=== PATIENT | female | born 1985 | race Caucasian/White ===

== ENCOUNTER → 2016-10-21 | Outpatient (CLI) | payer OTHER ==
[2016-10-21 22:21] LABS: Hemoglobin A1C 4.9 % (4.2-6.1)
== END | disposition home or self-care (01) ==
LOC: LABWHC1 13:57
PROVIDERS: ATTEND Pediatrics Neonatal-Perinatal Medicine
DX: O24.410 Gestational diabetes mellitus in pregnancy, diet controlled (principal); Z3A.00 Weeks of gestation of pregnancy not specified
CPT/HCPCS: 36415; 82947; 83036

== ENCOUNTER 2016-11-27 05:53 | Inpatient (IN) | payer OTHER ==
--- NOTE | 2016-11-26 17:24 | P.HPOB ---
History of Present Illness H&P Date: 11/26/16 Chief Complaint: IUP term: prior c/s Patient is 31-year-old at 39 weeks gestation who has a previous history of section. She is arriving for repeat section. Her course generally speaking has been unremarkable and she is feeling well at this time. Pertinent labs do include O- blood type Rh antibody was negative. Rubella was immune, hepatitis B surface antigen nelda RPR were negative. Physical exam vital signs are stable and afebrile. Heart regular, lungs clear, extremities without pain. Abdomen soft gravid uterus is noted. heart tones obtained at time of admission. Assessment intrauterine at term: Previous section. Plan repeat low transverse section. Review of Systems All systems: negative Constitutional: Denies chills, Denies fever Eyes: denies blurred vision, denies pain Ears, nose, mouth and throat: Denies headache, Denies sore throat Cardiovascular: Denies chest pain, Denies shortness of breath Respiratory: Denies cough Gastrointestinal: Denies abdominal pain, Denies diarrhea, Denies nausea, Denies vomiting Genitourinary: Denies dysuria, Denies hematuria Musculoskeletal: Denies myalgias Integumentary: Denies pruritus, Denies rash Neurological: Denies numbness, Denies weakness Psychiatric: Denies anxiety, Denies depression Endocrine: Denies fatigue, Denies weight change Past Medical History Past Medical History: No Reported History Additional Past Medical History / Comment(s): gestational diabetes History of Any Multi-Drug Resistant Organisms: None Reported Past Surgical History: Section, Cholecystectomy Past Anesthesia/Blood Transfusion Reactions: No Reported Reaction Past Psychological History: Bipolar Smoking Status: Current every day smoker Past Alcohol Use History: None Reported Additional Past Alcohol Use History / Comment(s): smoker 11 years 5 cig/day Past Drug Use History: None Reported - Past Family History Mother Family Medical History: No Reported History Medications and Allergies Home Medications Medication Instructions Recorded Confirmed Type Pnv with Ca,No.72/Iron/FA 1 tab PO DAILY 05/05/16 11/19/16 History [ Plus Tablet] Allergies Allergy/AdvReac Type Severity Reaction Status Date / Time clindamycin Allergy Swelling Verified 11/19/16 15:35 Exam Osteopathic Statement: *. No significant issues noted on an osteopathic structural exam other than those noted in the History and Physical/Consult. - OBG Physical Exam Breast: both: normal (no masses) Abdomen: bowel sounds normal, no diffuse tenderness, no bruit present, no guarding noted, no hepatomegaly, no splenomegaly, no mass Vulva: both: normal Vagina: normal moisture, no discharge Cervix: no lesion, no discharge Uterus: normal size, normal contour Adnexa: both: normal Anus/Rectum: normal perianal skin, no rectal mass, no hemorrhoids, heme negative
[~2016-11-27 05:53] MED LIST: CITRIC ACID-SODIUM CITRATE 15 ML CUP PO ONE; ceFAZolin 2 GM in SODIUM CHLORIDE 0.9% 100 ML IVPB ONE
[2016-11-27 06:11] VITALS: BMI 33.4
[2016-11-27] MEDS: LACTATED RINGERS 1,000 ML IV SCH (06:12)
[2016-11-27 06:16] LABS: Glucose,Whole Blood 94 mg/dL (75-99)
[2016-11-27 06:23] LABS: Basophils # (A) 0.1 k/uL (0-0.2); Basophils % (A) 1 %; CH 32.3; CHCM 35.1; Eosinophils # (A) 0.4 k/uL (0-0.7); Eosinophils % (A) 3 %; HCT 35.6 % (34.0-46.0); HDW 2.52; HGB 11.9 gm/dL (11.4-16.0); Luc # (Auto) 0.16; Luc % (Auto) 1; Lymphocytes # (A) 2.9 k/uL (1.0-4.8); Lymphocytes % (A) 23 %; MCH 30.9 pg (25.0-35.0); MCHC 33.5 g/dL (31.0-37.0); MCV 92.4 fL (80.0-100.0); Mean Platelet Volume 7.8; Monocytes # (A) 0.6 k/uL (0-1.0); Monocytes % (A) 5 %; Neutrophils # (A) 8.6 k/uL (1.3-7.7); Neutrophils % (A) 68 %; RBC 3.86 m/uL (3.80-5.40); WBC 12.8 k/uL (3.8-10.6); WBC (Perox) 12.13
[2016-11-27] MEDS ORDERED: ePHEDrine 50 MG/ML 1 ML AMP ONE (07:56)
[2016-11-27] MEDS ORDERED: PHENYLEPHRINE-0.9% NACL SYG 1 MG/10 ML SYRINGE ONE (07:56)
[2016-11-27] MEDS ORDERED: OXYTOCIN 10 UNIT/ML 1 ML VIAL IM ONE (07:56)
[2016-11-27] MEDS ORDERED: ONDANSETRON 4 MG/2 ML VIAL ONE (07:56)
[2016-11-27] MEDS ORDERED: MORPHINE SULFATE (PF) 0.3 MG/0.3 ML SYR ONE (07:56)
[2016-11-27] MEDS ORDERED: NALBUPHINE 10 MG/ML AMPUL ONE (07:56)
[2016-11-27] MEDS ORDERED: KETOROLAC 30 MG/ML 1 ML VIAL ONE (07:56)
--- NOTE | 2016-11-27 08:39 | P.OP ---
Date of Procedure: 11/27/16 Preoperative Diagnosis: Into uterine at 39 weeks': Previous section Postoperative Diagnosis: Same Procedure(s) Performed: Repeat low transverse section Anesthesia: spinal Surgeon: Arie العراقي Director Sports #1: Sultana Barrera Estimated Blood Loss (ml): 700 IV fluids (ml): 1,100 Urine output (ml): 200 Pathology: other (Placenta) Condition: stable Disposition: floor Operative Findings: Male scores 8 and 9 at one and 5 minutes respectively weight was 8 lbs. 10 oz. Description of Procedure: Patient states the operating suite where a spinal anesthetic was found be adequate. She was prepped and draped in the normal sterile fashion and placed in the dorsal supine position with leftward tilt. Initially a Pfannenstiel skin incision was made this incision was then carried through to underlying layer of the fascia was second knife. Fascia was then nicked in the midline and this opening was extended laterally with Kennedy scissors. Superior and inferior aspect of this incision were then grasped tented up and bluntly and sharply dissected off the rectus muscles. Rectus muscles were then divided the midline and sharp dissection through the peritoneum was made. This opening was then extended superiorly and inferiorly with good visualization of both bowel bladder. Bladder blade was then placed bladder flap identified and entered with metastases scissors this opening was then extended across face of the uterus with metastases from scissors and her bladder flap was digitally created. Knife was then used to incise the uterus this opening was then created fully with hemostat and extended bluntly. Clear fluid was noted. Head was then atraumatically delivered cord 1 noted and reduced. Mouth nares were then bulb suctioned anterior posterior shoulders delivered gentle downward upper traction followed by the remainder the baby. Umbilical cord was then clamped cut usual fashion an nursery personnel was present to assume care. Placenta was then delivered intact and Pitocin was added to the IV. Uterus was then exteriorized cleared of clots and debris and closed in 1 layer with 0 Vicryl suture. During this process there was one area in the left corner that did have some bleeding due to a sinus. [id number] stitch was used to obtain excellent hemostasis. Once hemostasis was obtained we did observe this area for approximately 5 minutes before closing the bladder flap once we felt couple at there was no more bleeding from that area bladder flap was reapproximated with 3-0 Vicryl. Blood and debris was then suctioned from the posterior cul-de-sac and the uterus was reinserted into the abdomen. Peritoneal layer was then reapproximated with 0 Vicryl suture fascial layer was closed Lobac suture one layer of 3-0 Vicryl was placed in deep subcuticular tissues to reapproximate the skin and close that space and the skin was then closed was 3-0 Vicryl on a Edwin needle. Sponge, lap, needle counts were all correct 2 and patient was taken to recovery room in stable and satisfactory condition.
[2016-11-27] MEDS ORDERED: diphenhydrAMINE 50 MG CAP PO PRN (08:40)
[2016-11-27] MEDS ORDERED: KETOROLAC 30 MG/ML 1 ML VIAL IVP PRN (08:40)
[2016-11-27] MEDS ORDERED: Acetaminophen-Codeine 300-30mg TAB PO PRN ×2 (08:40)
[2016-11-27] MEDS ORDERED: diphenhydrAMINE 50 MG/ML 1 ML VIAL IVP PRN ×2 (08:40)
[2016-11-27] MEDS ORDERED: NALOXONE 0.4 MG/ML 1 ML VIAL IV PRN (08:40)
[2016-11-27] MEDS ORDERED: MEASLES-MUMPS-RUBELLA VACC/PF 12,500 UNIT/0.5 ML VIAL SQ ONE (08:40)
[2016-11-27] MEDS ORDERED: ONDANSETRON 4 MG/2 ML VIAL IVP PRN (08:40)
[2016-11-27] MEDS ORDERED: METOCLOPRAMIDE 5 MG/ML 2 ML VIAL IVP PRN (08:40)
[2016-11-27] MEDS ORDERED: diphenhydrAMINE 25 MG CAP PO PRN (08:40)
[2016-11-27] MEDS ORDERED: ACETAMINOPHEN TAB 325 MG TAB PO PRN (08:40)
[2016-11-27] MEDS: SENNOSIDES-DOCUSATE SODIUM 1 EACH TAB PO SCH (20:19)
[2016-11-27] MEDS ORDERED: ZOLPIDEM 5 MG TAB PO PRN (21:00)
[2016-11-28] MEDS: SENNOSIDES-DOCUSATE SODIUM 1 EACH TAB PO SCH (07:29)
--- NOTE | 2016-11-28 08:11 | P.PNOBGPC ---
Subjective - Subjective Principal diagnosis: S/P RLTCS POD #1 Interval history: PAtient seen and examined. Denies nausea, vomiting, chest pain, shortness of breath or calf pain. No flatus yet Patient reports: Reports appetite normal, Reports voiding normally, Reports pain well controlled, Reports ambulating normally : doing well Objective - Vital Signs Latest vital signs: Vital Signs Temp Pulse Resp BP Pulse Ox 11/28/16 07:41 97.8 F 76 17 96/62 11/28/16 04:00 98.0 F 75 16 100/60 11/28/16 00:00 97.8 F 81 16 96/69 98 11/27/16 20:00 97.7 F 79 16 98/64 98 11/27/16 16:00 98.3 F 81 18 102/62 97 11/27/16 12:00 97.9 F 90 16 110/67 11/27/16 10:50 98.2 F 102 H 16 112/62 11/27/16 10:20 96 16 107/62 11/27/16 09:50 94 16 112/68 11/27/16 09:35 103 H 16 109/56 11/27/16 09:20 104 H 16 122/67 11/27/16 09:03 105 H 20 132/58 11/27/16 08:50 96 16 148/59 Intake and Output 11/27/16 11/28/16 11/28/16 22:59 06:59 14:59 Output Total 4400 800 Balance -4400 -800 Output: Urine 4400 800 Uretheral (Allen) 700 Other: Voiding Method Indwelling Catheter # Voids 1 1 - Exam Lungs: bilateral: normal Chest: Normal S1, Normal S2 Extremities: Present: normal Abdomen: Present: normal appearance, soft. Absent: distention, tenderness Incision: Present: normal, dry, intact Uterus: Present: normal, firm Assessment and Plan (1) delivery delivered Narrative/Plan: 1. Continue postoperative care 2. Increase ambulation 3. Regular diet with flatus Current Visit: Yes Status: Acute Code(s): O82 - ENCOUNTER FOR DELIVERY WITHOUT INDICATION SNOMED Code(s): 183392644
[2016-11-28 08:40] LABS: Basophils # (A) 0.1 k/uL (0-0.2); Basophils % (A) 0 %; CH 31.9; CHCM 34.7; Eosinophils # (A) 0.3 k/uL (0-0.7); Eosinophils % (A) 2 %; HCT 34.9 % (34.0-46.0); HDW 2.44; HGB 11.9 gm/dL (11.4-16.0); Luc # (Auto) 0.27; Luc % (Auto) 2; Lymphocytes # (A) 2.5 k/uL (1.0-4.8); Lymphocytes % (A) 17 %; MCH 31.4 pg (25.0-35.0); MCV 92.3 fL (80.0-100.0); Mean Platelet Volume 7.3; Monocytes # (A) 0.6 k/uL (0-1.0); Monocytes % (A) 5 %; Neutrophils # (A) 10.4 k/uL (1.3-7.7); Neutrophils % (A) 74 %; RBC 3.78 m/uL (3.80-5.40); WBC 14.1 k/uL (3.8-10.6); WBC (Perox) 14.66
--- NOTE | 2016-11-28 09:02 | P.PN ---
Progress Note - Text Postop day 1 from under spinal anesthesia with intrathecal morphine given for postop pain management. Patient is doing well. Pain is well controlled. On visual analog scale 1/10 Mild itching present, getting better No nausea or vomiting reported. No Headache or weakness and numbness in the legs. No complications from spinal anesthesia.
[2016-11-28] MEDS: IBUPROFEN 600 MG TAB PO PRN (13:40)
[2016-11-28] MEDS: LACTATED RINGERS 1,000 ML IV SCH ×3 (21:17→21:21)
[2016-11-28] MEDS: OXYTOCIN 30 UNITS/500 ML NS 30 UNIT in SALINE 1 500ML.BAG IV SCH ×2 (21:18→21:19)
[2016-11-28 23:54] VITALS: RESP 16
[2016-11-29] MEDS: SENNOSIDES-DOCUSATE SODIUM 1 EACH TAB PO SCH ×2 (00:31→08:10)
[2016-11-29] MEDS: IBUPROFEN 600 MG TAB PO PRN (01:16)
[2016-11-29 09:05] VITALS: BP 117/68; PULSE 93; TEMP 98
--- NOTE | 2016-11-29 12:15 | P.DS ---
Providers Date of admission: 11/27/16 05:53 Expected date of discharge: 11/29/16 Attending physician: Arie العراقي Primary care physician: [facility] Course: This is a 31-year-old female 2 para 1 at 39 weeks who presented for repeat section. She underwent a repeat low transverse section on 11/27/[address] العراقي. She delivered a viable male infant with scores of 8 at 1 minute and 9 at 5 minutes and weight of 8 lbs. 10 oz. Her postoperative course was uncomplicated. She is currently postoperative day #2. She is passing flatus and bowel movement. She is urinating without difficulty. Lochia is decreasing. Pain is well-controlled on ibuprofen. She is breast-feeding without difficulty. Vital signs are stable. Abdomen is soft with positive bowel sounds 4. Incision is intact with Steri-Strips in place. There is a scant amount of yellow discharge noted. Extremities show negative Homans. Impression is status post repeat section postoperative day #2. Plan is to discharge home today. She is instructed to follow-up with Dr. العراقي in approximately one week for a postoperative check and in 6 weeks for a check. She is advised to call the office if she has any further questions or concerns prior to her appointment time. She will be given prescriptions for ibuprofen and a breast pump. Procedures: Repeat low transverse section on 11/27/2016 Patient Condition at Discharge: Stable Plan - Discharge Summary New Discharge Prescriptions: Ibuprofen [Motrin] 600 mg PO Q6HR PRN #60 tab PRN Reason: Mild Pain Or Fever >= 100.5 Discharge Medication List Pnv with Ca,No.72/Iron/FA [ Plus Tablet] 1 tab PO DAILY 05/05/16 [ History] Ibuprofen [Motrin] 600 mg PO Q6HR PRN #60 tab 11/29/16 [Rx] Follow up Appointment(s)/Referral(s): Arie العراقي DO [Doctor of Osteopathic Medicine] - 1 Week Activity/Diet/Wound Care/Special Instructions: Instructions 1. Do not begin any exercise program for 3 weeks. 2. Do not resume sexual relations for 3 weeks or longer if uncomfortable. 3. You may take tub baths or showers at any time. 4. You may use tampons if desired after 3 weeks. 5. Keep the area of episiotomy (stitches) clean and dry. 6. If you are not nursing, wear a good fitting, supportive bra during the day and limit fluid intake for at least 1 week to prevent breast engorgement. 7. Call the office, [phone], within the next week to make appointment for your 6 week checkup if it has not already been made. 8. Report any of the following occurrences to the doctor promptly: a. Heavy, excessive bleeding b. Chills, fever c. Burning or frequency of urination d. Pain or redness and breasts if nursing e. Increasing pain or swelling in episiotomy (stitches). In addition to the above instructions, the following additional should be followed: 1. No heavy lifting or straining (exercising) until after 6 week checkup. 2. Keep abdominal incision clean and dry: You may wear a dressing if more comfortable. 3. Make office appointment for 10 days after going home or as instructed by her doctor. Discharge Disposition: HOME SELF-CARE
== END 2016-11-29 01:00 | disposition home or self-care (01) | DRG 766 ==
LOC: 4FBP 05:53
PROVIDERS: ADMIT Obstetrics & Gynecology; ATTEND Obstetrics & Gynecology
PROC: 10D00Z1 Extraction of Products of Conception, Low, Open Approach (ICD-10-PCS; principal; 2016-11-27 07:56)
DX: O34.211 Maternal care for low transverse scar from previous cesarean delivery (principal); F17.200 Nicotine dependence, unspecified, uncomplicated; Z37.0 Single live birth; O99.334 Smoking (tobacco) complicating childbirth; Z3A.39 39 weeks gestation of pregnancy; Z86.32 Personal history of gestational diabetes; Z88.1 Allergy status to other antibiotic agents
CPT/HCPCS: 85025; 86850; 86900; 86901; 88307

== ENCOUNTER 2019-01-20 21:53 | Emergency (ER) | payer OTHER ==
[2019-01-20 22:04] VITALS: TEMP 98.2
[2019-01-20] MEDS ORDERED: SODIUM CHLORIDE 0.9% 1,000 ML IV STA (22:16)
[2019-01-20 23:12] LABS: Basophils # (A) 0.1 k/uL (0-0.2); Basophils % (A) 1 %; Eosinophils # (A) 0.7 k/uL (0-0.7); Eosinophils % (A) 8 %; HCT 42.9 % (34.0-46.0); HGB 14.1 gm/dL (11.4-16.0); Lymphocytes # (A) 3.5 k/uL (1.0-4.8); Lymphocytes % (A) 39 %; MCH 30.3 pg (25.0-35.0); MCHC 32.9 g/dL (31.0-37.0); MCV 92.3 fL (80.0-100.0); Mean Platelet Volume 6.6; Monocytes # (A) 0.5 k/uL (0-1.0); Monocytes % (A) 6 %; Neutrophils # (A) 3.9 k/uL (1.3-7.7); Neutrophils % (A) 45 %; Platelet Count 286 k/uL (150-450); RBC 4.64 m/uL (3.80-5.40); RDW 12.9 % (11.5-15.5); WBC 8.8 k/uL (3.8-10.6)
[2019-01-20 23:27] LABS: ALT 27 U/L (9-52); AST 17 U/L (14-36); Albumin 3.9 g/dL (3.5-5.0); Alkaline Phosphatase 65 U/L (38-126); Anion Gap 5 mmol/L; Blood Urea Nitrogen 11 mg/dL (7-17); Calcium 9.1 mg/dL (8.4-10.2); Carbon Dioxide 24 mmol/L (22-30); Chloride 112 mmol/L (98-107); Glucose 94 mg/dL (74-99); Sodium 141 mmol/L (137-145); Total Bilirubin 0.3 mg/dL (0.2-1.3); Total Protein 6.7 g/dL (6.3-8.2)
--- NOTE | 2019-01-20 23:38 | CT ---
EXAM: CT Head Without Intravenous Contrast CLINICAL HISTORY: Reason: seizure TECHNIQUE: Axial computed tomography images of the head/brain without intravenous contrast. CTDI is 49.3 mGy and DLP is 981.5 mGy-cm. This CT exam was performed using one or more of the following dose reduction techniques: automated exposure control, adjustment of the mA and/or kV according to patient size, and/or use of iterative reconstruction technique. COMPARISON: None available FINDINGS: Brain: No evidence of acute transcortical cerebral infarction or intracranial hemorrhage. No abnormal mass effect or midline shift. No abnormal extra-axial collections. Ventricles: Ventricles are unremarkable. Bones/joints: No skull fracture identified. Sinuses: Imaged paranasal sinuses are clear. Mastoid air cells: Imaged mastoid sinuses are clear. IMPRESSION: No evidence of acute intracranial abnormality.
--- NOTE | 2019-01-20 23:50 | ED ---
Seizure HPI - General Chief Complaint: Seizure Stated Complaint: Seizures Time Seen by Provider: 01/20/19 22:16 Source: patient Mode of arrival: ambulatory Limitations: no limitations, altered mental status - History of Present Illness Initial Comments: Roxann is a pleasant 33 yo female with PMH of pseudoseizures who since the emergency department today for evaluation of possible seizure and boyfriend at bedside states that approximately an hour prior to arrival patient had 2 episodes of proximally 5 minutes apart in which she was sitting her eyes rolled back and she was not responsive. After the first episode she returned to her baseline however had another episode approximately 5 minutes later this episode lasted approximately 1 minute. Patient reports that again after that episode she returned to baseline but approximately an hour later had another episode and then became confused thought it was 2010 so he brought into the ER for eval uation. He has spoken with her mother about her symptoms and her mother's concern that she may be having an emotional breakdown she is undergoing a lot of stress right now. She currently does not have custody of her child. She also works nights she worked last night and was unable to sleep today during the day and her boyfriend's concern that she's having some sleep deprivation which adds to her stress. - Related Data Home Medications Medication Instructions Recorded Confirmed No Known Home Medications 01/20/19 01/20/19 Allergies Allergy/AdvReac Type Severity Reaction Status Date / Time clindamycin Allergy Swelling Verified 01/20/19 22:44 Review of Systems ROS Statement: Those systems with pertinent positive or pertinent negative responses have been documented in the HPI. ROS Other: All systems not noted in ROS Statement are negative. Past Medical History Past Medical History: No Reported History Additional Past Medical History / Comment(s): gestational diabetes, pseudo seiz ure History of Any Multi-Drug Resistant Organisms: None Reported Past Surgical History: Section, Cholecystectomy Past Anesthesia/Blood Transfusion Reactions: No Reported Reaction Past Psychological History: Bipolar, Depression Smoking Status: Current every day smoker Past Alcohol Use History: None Reported Past Drug Use History: None Reported - Past Family History Mother Family Medical History: No Reported History General Exam - General Exam Comments Initial Comments: Physical Exam GENERAL: Patient is well-developed and well-nourished. Patient is nontoxic and well- hydrated and is in no distress. HENT: Normocephalic, Atraumatic. EYES: PERRL, EOMI PULMONARY: Unlabored respirations. No audible rales rhonchi or wheezing was noted. CARDIOVASCULAR: There is a regular rate and rhythm without any murmurs gallops or rubs. ABDOMEN: Soft and nontender with normal bowel sounds. SKIN: Skin is clear with no lesions or rashes and otherwise unremarkable. : Deferred NEUROLOGIC: Patient is alert and oriented to person and place, when asked the year states it is 2010 but when asked about current events she is up to date Moving all extremities spontaneously MUSCULOSKELETAL: Normal extremities with adequate strength and full range of motion. No lower extremity swelling or edema. No calf tenderness. PSYCHIATRIC: Normal psychiatric evaluation. Limitations: no limitations Limitations: no limitations, altered mental status Course Vital Signs 01/20/19 21:58 Temperature 98.2 F Pulse Rate 104 H Respiratory 20 Rate Blood Pressure 123/82 O2 Sat by Pulse 100 Oximetry Medical Decision Making - Medical Decision Making She was seen and evaluated history was obtained from the patient and her boyfriend at bedside Labs were ordered Boyfriend in the patient's mother requesting a head CT I was called to the patient's room for apparent seizure activity, patient was leaning back in bed with her eyes open her eyes were rolled back, her body was shaking, when I attempted to move her arms she pulled away from me when I asked her if she was feeling okay she stated that yes she felt okay user and did she had no postictal period and based on my observation of her seizure-like activity I do feel that the patient is having pseudoseizures and not true epileptic seizures. She was able to Tati to stimulus and speak through the event. Patient's labs and imaging are unremarkable I return to the patient's room to discuss results with her. But for now expressing concern that she is developed difficulty in speech. Upon my e valuation the patient seems to have some stuttering but has clear receptive speech. I asked the boyfriend leave the room to speak the patient alone. During this time the patient's speech improved. I advised the patient that I think that her pseudoseizures and then now difficulty expressing herself may be stress related however patient expressed agreement with this. I did offer to transfer the patient to a facility with a large services versus have the patient evaluated by our psychiatric nurse here for outpatient referrals for management of her stress and anxiety. Patient is agreeable to plan for speaking with psychiatric nurse here. Was evaluated by the psychiatric nurse she was given resources for outpatient follow-up for treatment of her anxiety and depression. At this time patient feels comfortable with plan for discharge home. - Lab Data Result diagrams: 01/20/19 22:55 01/20/19 22:55 Lab Results 01/20/19 01/20/19 01/20/19 Range/Units 22:55 22:55 22:55 WBC 8.8 (3.8-10.6) k/uL RBC 4.64 (3.80-5.40) m/uL Hgb 14.1 (11.4-16.0) gm/dL Hct 42.9 (34.0-46.0) % MCV 92.3 (80.0-100.0) fL MCH 30.3 (25.0-35.0) pg MCHC 32.9 (31.0-37.0) g/dL RDW 12.9 (11.5-15.5) % Plt Count 286 (150-450) k/uL Neutrophils % 45 % Lymphocytes % 39 % Monocytes % 6 % Eosinophils % 8 % Basophils % 1 % Neutrophils # 3.9 (1.3-7.7) k/uL Lymphocytes # 3.5 (1.0-4.8) k/uL Monocytes # 0.5 (0-1.0) k/uL Eosinophils # 0.7 (0-0.7) k/uL Basophils # 0.1 (0-0.2) k/uL Sodium 141 (137-145) mmol/L Potassium 4.0 (3.5-5.1) mmol/L Chloride 112 H (98-107) mmol/L Carbon Dioxide 24 (22-30) mmol/L Anion Gap 5 mmol/L BUN 11 (7-17) mg/dL Creatinine 0.66 (0.52-1.04) mg/dL Est GFR (CKD-EPI)AfAm >90 (>60 ml/min/1.73 sqM) Est GFR (CKD-EPI)NonAf >90 (>60 ml/min/1.73 sqM) Glucose 94 (74-99) mg/dL Plasma Lactic Acid Jaret 1.1 (0.7-2.0) mmol/L Calcium 9.1 (8.4-10.2) mg/dL Total Bilirubin 0.3 (0.2-1.3) mg/dL AST 17 (14-36) U/L ALT 27 (9-52) U/L Alkaline Phosphatase 65 (38-126) U/L Total Protein 6.7 (6.3-8.2) g/dL Albumin 3.9 (3.5-5.0) g/dL Disposition Clinical Impression: Pseudoseizure, Anxiety Disposition: HOME SELF-CARE Condition: Stable Instructions (If sedation given, give patient instructions): Anxiety (ED) Is patient prescribed a controlled substance at d/c from ED?: No Referrals: David Khan MD [Primary Care Provider] - 1-2 days
[2019-01-21 04:12] VITALS: BP 104/66; PULSE 86; RESP 16
== END 2019-01-21 04:10 | disposition home or self-care (01) ==
LOC: EC 21:53
DX: R56.9 Unspecified convulsions (principal); F41.9 Anxiety disorder, unspecified; F17.200 Nicotine dependence, unspecified, uncomplicated; Z88.1 Allergy status to other antibiotic agents
CPT/HCPCS: 36415; 70450; 80053; 82075; 83605; 85025; 96360; 99284

== ENCOUNTER 2019-07-05 14:41 | Emergency (ER) | payer OTHER ==
[2019-07-05 14:45] VITALS: BP 109/73; PULSE 82; RESP 18; TEMP 98
--- NOTE | 2019-07-05 15:06 | ED ---
Skin/Abscess/FB HPI - General Chief complaint: Skin/Abscess/Foreign Body Stated complaint: rash on back Source: patient Mode of arrival: ambulatory Limitations: no limitations - History of Present Illness Initial comments: 33-year-old female presenting rash on the lower mid back. Patient states she noticed an itchy rash in the lower mid back 1 hour prior to arrival. Patient st ates she had not noticed before. Patient is unsure if it is insect bite. Patient denies any fever or flulike symptoms denies any recent travel. Patient denies any mosquito bites. Patient denies any recent medication changes are new changes in soaps skin products. Patient states she is vaccinated, denies sick contacts. Patient denies any other associated symptoms. - Related Data Previous Rx's Medication Instructions Recorded Bacitracin Oint 1 applic TOPICAL BID 7 Days #1 tube 07/05/19 diphenhydrAMINE & Zinc Cream 1 applic TOPICAL BID 7 Days #1 tube 07/05/19 [Benadryl Cream] Allergies Allergy/AdvReac Type Severity Reaction Status Date / Time clindamycin Allergy Swelling Verified 07/05/19 14:45 Review of Systems ROS Statement: Those systems with pertinent positive or pertinent negative responses have been documented in the HPI. ROS Other: All systems not noted in ROS Statement are negative. Past Medical History Past Medical History: No Reported History Additional Past Medical History / Comment(s): gestational diabetes, pseudo seizure History of Any Multi-Drug Resistant Organisms: None Reported Past Surgical History: Section, Cholecystectomy Past Anesthesia/Blood Transfusion Reactions: No Reported Reaction Past Psychological History: Bipolar, Depression Smoking Status: Current every day smoker Past Alcohol Use History: None Reported Past Drug Use History: None Reported - Past Family History Mother Family Medical History: No Reported History General Exam - General Exam Comments Initial Comments: General: The patient is awake and alert, in no distress, and does not appear acutely ill. Eye: Pupils are equal, round and reactive to light, extra-ocular movements are intact. No nystagmus. There is normal conjunctiva bilaterally. No signs of icterus. Ears, nose, mouth and throat: There are moist mucous membranes and no oral lesions. Neck: The neck is supple, there is no tenderness or JVD. Cardiovascular: There is a regular rate and rhythm. No murmur, rub or gallop is appreciated. Respiratory: Lungs are clear to auscultation, respirations are non-labored, breath sounds are equal. No wheezes, stridor, rales, or rhonchi. Musculoskeletal: Normal ROM, no tenderness. Strength 5/5. Sensation intact. Pulses equal bilaterally 2+. Neurological: A&O x 3. CN II-XII intact grossly, There are no obvious motor or sensory deficits. Coordination appears grossly intact. Speech is normal. Skin: Skin is warm and dry. Red raised small papular lesions clustered on the lower back midline, no dermatomal pattern, no pain out of proportion. Psychiatric: Cooperative, appropriate mood & affect, normal judgment. Limitations: no limitations Course Vital Signs 07/05/19 14:43 Temperature 98 F Pulse Rate 82 Respiratory 18 Rate Blood Pressure 109/73 O2 Sat by Pulse 99 Oximetry Medical Decision Making - Medical Decision Making 33-year-old feel presented for rash that she noticed one hour prior to arrival. Itchy. Appears similar to dermatitis. Patient has no specific history consistent with a specific diagnosis. As this is early in disease progression or occupational Lyme the area try topical antibiotic as well as Benadryl cream for relief and follow up with primary care provider return parameters were discussed at length the importance of return to the emergency department if symptoms worsen patient was discharged appearing well Disposition Clinical Impression: Dermatitis Disposition: HOME SELF-CARE Condition: Good Instructions (If sedation given, give patient instructions): Insect Bite or Sting (ED), Dermatitis (ED) Additional Instructions: Please use medication as discussed. Please follow-up with family doctor in the next 2 days. Monitor the expansion of the rash by the outlined area. Please return to emergency room if the symptoms increase or worsen or for any other concerns, increase in spread of area as discussed, fever, pain. Prescriptions: Bacitracin Oint 1 applic TOPICAL BID 7 Days #1 tube diphenhydrAMINE & Zinc Cream [Benadryl Cream] 1 applic TOPICAL BID 7 Days #1 tube Is patient prescribed a controlled substance at d/c from ED?: No Referrals: David Khan MD [Primary Care Provider] - 1-2 days Time of Disposition: 15:23
== END 2019-07-05 15:30 | disposition home or self-care (01) ==
LOC: EC 14:41
DX: L30.9 Dermatitis, unspecified (principal); F17.200 Nicotine dependence, unspecified, uncomplicated; Z88.1 Allergy status to other antibiotic agents
CPT/HCPCS: 99282

== ENCOUNTER → 2020-05-25 | Outpatient (CLI) | payer OTHER ==
[2020-05-25 20:13] LABS: Luteinizing Hormone 9.1 mIU/mL; Prolactin 4.9 ng/mL (2.8-29.2)
[2020-05-25 20:14] LABS: Estradiol 47.5 pg/mL; Follicle Stimulating Hormone 7.9 mIU/mL
== END | disposition home or self-care (01) ==
LOC: LABWHC1 05-21 13:50
PROVIDERS: ATTEND Obstetrics & Gynecology
DX: N93.8 Other specified abnormal uterine and vaginal bleeding (principal)
CPT/HCPCS: 36415; 82670; 83001; 83002; 84146; 84443

== ENCOUNTER → 2020-05-31 | Outpatient (CLI) | payer OTHER ==
--- NOTE | 2020-05-31 15:42 | US ---
EXAMINATION TYPE: US pelvis complete transvag DATE OF EXAM: 05/31/2020 COMPARISON: NONE CLINICAL HISTORY: N93.8 Dysfunctional uterine bleeding. TECHNIQUE: Transvaginal (TV) and Transabdominal (TA) . Transabdominal sonographic images of the pel vis were acquired. Transvaginal sonographic images were medically necessary to better assess the fol lowing anatomy: uterus Date of LMP: 05/15/20 EXAM MEASUREMENTS: Uterus: 8.5 x 3.9 x 5.3 cm Endometrial Stripe: 0.6 cm Right Ovary: 3.5 x 2.6 x 2.4 cm Left Ovary: 2.9 x 2.4 x 2.3 cm 1. Uterus: Anteverted,wnl, 2. Endometrium: wnl 3. Right Ovary: wnl 4. Left Ovary: wnl 5. Bilateral Adnexa: wnl 6. Posterior cul-de-sac: wnl IMPRESSION: No acute process.
== END | disposition home or self-care (01) ==
LOC: RADUSWWP 14:04
PROVIDERS: ATTEND Obstetrics & Gynecology
DX: N93.8 Other specified abnormal uterine and vaginal bleeding (principal)
CPT/HCPCS: 76830; 76856

== ENCOUNTER 2021-04-04 13:07 | Emergency (ER) | payer BC, OTHER ==
[2021-04-04 13:11] VITALS: TEMP 98
[2021-04-04] MEDS ORDERED: ASPIRIN 81 MG PO STA (13:26)
[2021-04-04 13:41] VITALS: RESP 18
--- NOTE | 2021-04-04 13:48 | ED ---
Chest Pain HPI - General Chief Complaint: Chest Pain Stated Complaint: chest pain & high heart rate Time Seen by Provider: 04/04/21 13:21 Source: patient Mode of arrival: ambulatory Limitations: no limitations - History of Present Illness Initial Comments: This 35-year-old female presents with a complaint of chest pain. She states that it started at approximately 9:30 AM while at work. It initially was sharp and nonradiating. She later relates that it turned into more of a pressure or tightness type of sensation in her midsternal region. No radiation is noted. No diaphoresis, palpitations, or shortness of breath. She does complain of some mild hand numbness bilaterally. She relates a history of anxiety but this is been quite stable for several years. She denies any known life stressors recently. There is no leg pain or swelling. She denies any history of DVT, PE, or coronary artery disease or other cardiac or pulmonary disease. No previous similar incidents. No other complaints or modifying factors. - Related Data Home Medications Medication Instructions Recorded Confirmed Cholecalciferol [Vitamin D3 (25 25 mcg PO DAILY 04/04/21 04/04/21 Mcg = 1000 Iu)] Multivit with Calcium,Iron,Min 1 tab PO DAILY 04/04/21 04/04/21 [Women's Multivitamin] Allergies Allergy/AdvReac Type Severity Reaction Status Date / Time clindamycin Allergy Swelling Verified 04/04/21 14:51 Review of Systems ROS Statement: Those systems with pertinent positive or pertinent negative responses have been documented in the HPI. ROS Other: All systems not noted in ROS Statement are negative. Past Medical History Past Medical History: No Reported History Additional Past Medical History / Comment(s): gestational diabetes, pseudo seizure History of Any Multi-Drug Resistant Organisms: None Reported Past Surgical History: Section, Cholecystectomy Past Anesthesia/Blood Transfusion Reactions: No Reported Reaction Past Psychological History: Bipolar, Depression Smoking Status: Current every day smoker Past Alcohol Use History: None Reported Past Drug Use History: None Reported - Past Family History Mother Family Medical History: No Reported History General Exam - General Exam Comments Initial Comments: GENERAL: The patient is well nourished and well hydrated. VITAL SIGNS: Heart rate, blood pressure, respiratory rate reviewed as recorded in nurse's notes. EYES: Pupils are round and reactive. Extraocular movements are intact. No conjunctival / lid redness or swelling. ENT: No external evidence of injury, swelling, or ecchymosis. Airway is patent. Throat is clear. NECK: Nontender. No swelling or evidence of injury. No subcutaneous emphysema. Trachea is midline. No thyroid mass. HEART: Regular rate and rhythm. Good peripheral pulses. There is mild tenderness upon palpation of the midsternal region. LUNGS/CHEST: Breath sounds clear and equal bilaterally. No rales, rhonchi, or wheezes. No ecchymosis, subcutaneous emphysema, or tenderness. ABDOMEN: Abdomen soft without tenderness. No palpable masses or organomegaly. No peritoneal signs. No abdominal wall swelling or ecchymosis. EXTREMITIES: No extremity tenderness. Normal muscle tone and function. No thoracolumbar tenderness. NEUROLOGIC: Sensation is grossly intact. Cranial nerve exam reveals face is symmetrical, tongue is midline, speech is clear. SKIN: No abrasions or ecchymosis is noted. No induration or masses noted. PSYCHIATRIC: Alert and oriented. Appropriate behavior and judgment. She does not currently appear anxious. Limitations: no limitations Course Vital Signs 04/04/21 04/04/21 04/04/21 13:07 13:40 16:50 Temperature 98.0 F Pulse Rate 108 H 97 82 Respiratory 20 18 18 Rate Blood Pressure 125/80 126/82 101/69 O2 Sat by Pulse 100 99 99 Oximetry Chest Pain [facility] The patient was seen and examined. All diagnostics are reviewed. EKG shows a sinus tachycardia at a rate of 101. There is no acute ST-T wave changes identified. The MO intervals 128, QRS duration is 84, and the QTC intervals 435. An IV is established and she does receive some aspirin. The laboratory is reviewed and is unremarkable. The chest x-ray does not show any acute process. Patient is feeling markedly improved on recheck. The exact cause of her symptomatology is not definitively determined. She is tender upon palpation of her chest and it is felt as though it likely is musculoskeletal in nature. Anxiety is a possibility as well. It is felt less likely to be cardiac or pulmonology in nature. Close follow-up is recommended. Return parameters are discussed. Patient is discharge. Disposition Clinical Impression: Musculoskeletal chest pain Disposition: HOME SELF-CARE Condition: Good Instructions (If sedation given, give patient instructions): Chest Pain (ED), Costochondritis (ED) Additional Instructions: Please take Motrin and/or Tylenol if needed for pain. Is patient prescribed a controlled substance at d/c from ED?: No Referrals: David Khan MD [Primary Care Provider] - 1-2 days Time of Disposition: 18:45
[2021-04-04 13:54] LABS: Basophils # (A) 0.1 k/uL (0-0.2); Basophils % (A) 1 %; Eosinophils # (A) 0.6 k/uL (0-0.7); Eosinophils % (A) 6 %; HCT 45.7 % (34.0-46.0); Lymphocytes # (A) 3.8 k/uL (1.0-4.8); Lymphocytes % (A) 40 %; MCH 29.8 pg (25.0-35.0); MCHC 32.7 g/dL (31.0-37.0); MCV 91.2 fL (80.0-100.0); Mean Platelet Volume 6.8; Monocytes # (A) 0.4 k/uL (0-1.0); Monocytes % (A) 4 %; Neutrophils # (A) 4.4 k/uL (1.3-7.7); Neutrophils % (A) 47 %; Platelet Count 265 k/uL (150-450); RBC 5.02 m/uL (3.80-5.40); RDW 12.9 % (11.5-15.5); WBC 9.4 k/uL (3.8-10.6)
[2021-04-04 14:05] LABS: D-Dimer 0.2 mg/L FEU (<0.60); Partial Thromboplastin Time 24.6 sec (22.0-30.0); Prothrombin Time 10.4 sec (9.0-12.0)
--- NOTE | 2021-04-04 14:24 | XR ---
EXAMINATION TYPE: XR chest 2V DATE OF EXAM: 04/04/2021 COMPARISON: NONE HISTORY: Chest pain TECHNIQUE: Frontal and lateral views of the chest are obtained. FINDINGS: There is no focal air space opacity, pleural effusion, or pneumothorax seen. The cardiac silhouette size is within normal limits. The osseous structures are intact. IMPRESSION: No acute cardiopulmonary process.
[2021-04-04 14:33] LABS: ALT 20 U/L (4-34); AST 28 U/L (14-36); African American GFR (CKD) >90 (>60 ml/min/1.73 sqM); Albumin 4.3 g/dL (3.5-5.0); Alkaline Phosphatase 76 U/L (38-126); Anion Gap 8 mmol/L; Blood Urea Nitrogen 9 mg/dL (7-17); Calcium 9.4 mg/dL (8.4-10.2); Carbon Dioxide 24 mmol/L (22-30); Chloride 107 mmol/L (98-107); Glucose 98 mg/dL (74-99); Magnesium 1.9 mg/dL (1.6-2.3); Non-African American GFR(CKD) >90 (>60 ml/min/1.73 sqM); Sodium 139 mmol/L (137-145); Total Bilirubin 0.1 mg/dL (0.2-1.3); Total Protein 7.4 g/dL (6.3-8.2)
[2021-04-04 16:51] VITALS: BP 101/69; PULSE 82
== END 2021-04-04 18:56 | disposition home or self-care (01) ==
LOC: EC 13:07
DX: R07.89 Other chest pain (principal); R00.0 Tachycardia, unspecified; R20.0 Anesthesia of skin; F31.9 Bipolar disorder, unspecified; F17.200 Nicotine dependence, unspecified, uncomplicated
CPT/HCPCS: 36415; 71046; 80053; 83735; 84484; 85025; 85379; 85610; 85730; 93005; 99285

== ENCOUNTER 2021-11-22 09:00 | Emergency (ER) | payer BC, OTHER ==
[2021-11-22 09:06] VITALS: BP 125/78; PULSE 112; RESP 18; TEMP 98.5
[2021-11-22] MEDS ORDERED: KETOROLAC 15 MG/ML 1 ML VIAL IM STA (09:19)
--- NOTE | 2021-11-22 09:23 | ED ---
General Adult HPI - General Chief complaint: Extremity Injury, Upper Stated complaint: Fall/Lt Wrist Injury Time Seen by Provider: 11/22/21 09:15 Source: patient, RN notes reviewed, old records reviewed Mode of arrival: ambulatory Limitations: no limitations - History of Present Illness Initial comments: Well-appearing 36-year-old female presents to the emergency room with complaints of slip and fall in her driveway today landing on her left wrist. She has pain with movement and palpation. She denies any other injury. No loss of consciousness did not hit her head. She is a smoker. -: hour(s) (1) Location: left, upper extremity (wrist) Radiation: proximal (forearm) Severity scale (1-10): 9 Quality: sharp, constant Consistency: constant Improves with: immobilization Worsens with: movement Associated Symptoms: denies other symptoms Treatments Prior to Arrival: none - Related Data Home Medications Medication Instructions Recorded Confirmed Cholecalciferol [Vitamin D3 (25 25 mcg PO DAILY 04/04/21 04/04/21 Mcg = 1000 Iu)] Multivit with Calcium,Iron,Min 1 tab PO DAILY 04/04/21 04/04/21 [Women's Multivitamin] Previous Rx's Medication Instructions Recorded Ibuprofen [Motrin] 600 mg PO Q8HR PRN #30 tab 11/22/21 Allergies Allergy/AdvReac Type Severity Reaction Status Date / Time clindamycin Allergy Swelling Verified 11/22/21 09:06 Review of Systems ROS Statement: Those systems with pertinent positive or pertinent negative responses have been documented in the HPI. ROS Other: All systems not noted in ROS Statement are negative. Past Medical History Past Medical History: No Reported History Additional Past Medical History / Comment(s): gestational diabetes, pseudo seizure History of Any Multi-Drug Resistant Organisms: None Reported Past Surgical History: Section, Cholecystectomy Past Anesthesia/Blood Transfusion Reactions: No Reported Reaction Past Psychological History: Bipolar, Depression Smoking Status: Current every day smoker Past Alcohol Use History: None Reported Past Drug Use History: None Reported - Past Family History Mother Family Medical History: No Reported History General Exam Limitations: no limitations General appearance: alert, in no apparent distress Head exam: Present: atraumatic, normocephalic, normal inspection Eye exam: Present: normal appearance. Absent: scleral icterus, conjunctival injection, periorbital swelling Respiratory exam: Present: normal lung sounds bilaterally. Absent: respiratory distress, wheezes, rales, rhonchi, stridor, accessory muscle use Cardiovascular Exam: Present: tachycardia Left Elbow exam: Present: normal inspection. Absent: tenderness Forearm Wrist exam: Present: normal inspection, tenderness (Mid forearm). Absent: swelling, laceration, ecchymosis, erythema Hand Wrist exam: Present: tenderness, swelling. Absent: abrasion, laceration, ecchymosis, deformity, erythema Vascular: Present: normal capillary refill, radial pulse. Absent: vascular compromise Neurological exam: Present: alert, oriented X3 Psychiatric exam: Present: normal affect, normal mood Skin exam: Present: warm, dry, intact, normal color. Absent: rash Course Vital Signs 11/22/21 09:04 Temperature 98.5 F Pulse Rate 112 H Respiratory 18 Rate Blood Pressure 125/78 O2 Sat by Pulse 96 Oximetry Procedures - Orthopedic Splinting/Casting Injury #1 Side: left Upper Extremity Injury Location: short arm Upper Extremity Immobilizer: Inderjit wrap, synthetic pre-padded splint Medical Decision Making - Medical Decision Making 36-year-old female presents after slip and fall in her driveway today landing on her left wrist. There is an impacted fracture of the left distal radius and ulnar styloid component fracture seen. Splint was applied, patient was neurovascularly intact prior to and post procedure. She will be referred to orthopedics next week. A prescription for Motrin was provided and she was directed to rest, ice and elevate at home. Return to emergency room for any new or concerning symptoms including increased pain or delayed capillary refill. Disposition Clinical Impression: Distal radius fracture Disposition: HOME SELF-CARE Condition: Good Instructions (If sedation given, give patient instructions): Arm Fracture in Adults (ED) Additional Instructions: Rest, ice, elevate and wear splint until seen by orthopedics next week. Motrin as needed for pain and swelling. Prescriptions: Ibuprofen [Motrin] 600 mg PO Q8HR PRN #30 tab PRN Reason: Pain Is patient prescribed a controlled substance at d/c from ED?: No Referrals: David Khan MD [Primary Care Provider] - 1-2 days Arthur Williamson PAC [PHYSICIAN COMPUTER APPLICATIONS ENGINEER] - 1-2 days Time of Disposition: 10:36
--- NOTE | 2021-11-22 09:57 | XR ---
EXAMINATION TYPE: XR wrist complete LT, XR forearm LT DATE OF EXAM: 11/22/2021 CLINICAL HISTORY: pain TECHNIQUE: Frontal, lateral and oblique images of the left wrist are obtained. 2 views of the left f orearm are also submitted. COMPARISON: None. FINDINGS: Impacted fracture distal radius. There is also ulnar styloid component fracture seen. Soft tissue swelling noted. The joint spaces appear within normal limits. IMPRESSION: Impacted fracture distal radius. There is also ulnar styloid component fracture seen.
== END 2021-11-22 11:10 | disposition home or self-care (01) ==
LOC: EC 09:00
DX: S52.512A Displaced fracture of left radial styloid process, initial encounter for closed fracture (principal); F32.A Depression, unspecified; F17.200 Nicotine dependence, unspecified, uncomplicated; Z88.1 Allergy status to other antibiotic agents; Z90.49 Acquired absence of other specified parts of digestive tract; W01.0XXA Fall on same level from slipping, tripping and stumbling without subsequent striking against object, initial encounter
CPT/HCPCS: 96372; 99283

== ENCOUNTER → 2021-12-06 | Outpatient (CLI) | payer BC, OTHER ==
--- NOTE | 2021-12-06 14:05 | US ---
EXAMINATION TYPE: US thyroid st tissue head/neck DATE OF EXAM: 12/06/2021 COMPARISON: NONE CLINICAL HISTORY: R22.1 Swelling, mass, lump neck. Neck swelling GLAND SIZE: Right Lobe: 8.2 x 3.0 x 2.9 cm Overall Parenchyma: heterogenous Left Lobe: 7.9 x 2.5 x 2.6 cm Overall Parenchyma: heterogeneous Isthmus Thickness: 0.7 cm NODULES RIGHT: # of nodules measured on right: 3 1. 2.2 X 1.9 x 1.8 cm, lower mid, solid or almost completely solid, hypoechoic nodule, which is poornima ler than wide, with ill-defined margins, without echogenic foci. Prior size: no previous 2. 1.5 X 1.4 x 1.4 cm, mid mid, solid or almost completely solid, hypoechoic nodule, which is wider than tall, with smooth margins, without echogenic foci. Prior size: no previous 3. 1.1 X 1.1 x 1.2 cm, lower medial, solid or almost completely solid, hypoechoic nodule, which is wider than tall, with ill-defined margins, without echogenic foci. Prior size: no previous LEFT: # of nodules measured on left: 2 1. 2.4 X 2.1 x 2.4 cm, lower mid, solid or almost completely solid, hypoechoic nodule, which is wid er than tall, with ill-defined margins, without echogenic foci. Prior size: no previous 2. 2.9 X 1.5 x 1.5 cm, upper mid, solid or almost completely solid, hypoechoic nodule, which is ta ller than wide, with smooth margins, without echogenic foci. Prior size: no previous ISTHMUS: # of nodules measured in the isthmus: 1 1. 1.5 X 1.0 x 1.5 cm solid or almost completely solid, isoechoic nodule, which is wider than tall, with ill-defined margins, without echogenic foci. Prior size: no previous Bilateral neck scanned, no evidence of lymphadenopathy. IMPRESSION: Enlarged heterogeneous with multiple nodules described above
== END | disposition home or self-care (01) ==
LOC: RADUSWWP 13:09
PROVIDERS: ATTEND Family Medicine
DX: E04.2 Nontoxic multinodular goiter (principal)
CPT/HCPCS: 76536

== ENCOUNTER → 2022-02-22 | Outpatient (CLI) | payer BC, OTHER ==
[2022-02-22 11:11] LABS: Basophils # (A) 0.05 X 10*3/uL (0.00-0.10); Basophils % (A) 0.5 %; Eosinophils % (A) 4.9 %; HCT 43.4 % (37.2-46.3); HGB 14.4 g/dL (12.0-15.0); Immature Grans, Automated 0.3 %; Lymphocytes # (A) 3.06 X 10*3/uL (0.90-5.00); Lymphocytes % (A) 30.2 %; MCH 30.4 pg (27.0-32.0); MCHC 33.2 g/dL (32.0-37.0); MCV 91.6 fL (80.0-97.0); Mean Platelet Volume 9.4 fL (9.5-12.2); Monocytes # (A) 0.71 X 10*3/uL (0.20-1.00); NRBC Per 100 WBC 0 /100 WBCS (0.0-0.0); Neutrophils # (A) 5.77 X 10*3/uL (1.80-7.70); Neutrophils % (A) 57.1 %; Platelet Count 274 X 10*3/uL (140-440); RBC 4.74 X 10*6/uL (4.10-5.20); RDW 12.7 % (11.5-14.5); WBC 10.12 X 10*3/uL (4.50-10.00)
[2022-02-22 11:51] LABS: Albumin 4.1 g/dL (3.8-4.9); Albumin/Globulin Ratio 1.37 (1.60-3.17); BUN/Creat Ratio 13.14 Ratio (12.00-20.00); Blood Urea Nitrogen 9.2 mg/dL (9.0-27.0); Calcium 8.8 mg/dL (8.7-10.3); Potassium 4.7 mmol/L (3.5-5.5); T4, Free (Free Thyroxine) 1.15 ng/dL (0.800-1.800); Total Bilirubin 0.2 mg/dL (0.30-1.20); Total Protein 7.1 g/dL (6.2-8.2)
== END | disposition home or self-care (01) ==
LOC: LABWHC1 09:01
PROVIDERS: ATTEND Family Medicine
DX: R94.6 Abnormal results of thyroid function studies (principal)
CPT/HCPCS: 36415; 80053; 84439; 84443; 84481; 85025

== ENCOUNTER → 2022-09-09 | Outpatient (CLI) | payer OTHER ==
--- NOTE | 2022-09-09 15:37 | US ---
EXAMINATION TYPE: US thyroid st tissue head/neck DATE OF EXAM: 09/09/2022 COMPARISON: NONE CLINICAL HISTORY: C73 thyroid cancer. Total thyroidectomy April 2022, assess for residual, no symptoms per patient Thyroid beds scanned with no obvious residual tissue seen at this time. IMPRESSION: No residual soft tissue masses in the thyroid bed.
[2022-09-09 23:21] LABS: T4, Free (Free Thyroxine) 1.31 ng/dL (0.800-1.800)
== END | disposition home or self-care (01) ==
LOC: RADUSWWP 14:45
PROVIDERS: ATTEND Internal Medicine
DX: C73 Malignant neoplasm of thyroid gland (principal); E03.9 Hypothyroidism, unspecified
CPT/HCPCS: 76536; 84432; 84439; 84443; 86800